=== PATIENT | female | born 1950 | race Caucasian/White ===

== ENCOUNTER 2021-05-03 14:49 | Inpatient (IN) | payer MEDICAID, MEDICARE ==
[~2021-05-03] VITALS: Ht 160 cm; Wt 140.6 kg
[2021-05-03] MEDS ORDERED: RISP0.5T5 PO (15:21)
[2021-05-03 16:04] LABS: HEMATOCRIT 25.4 % (31.2-41.9); MEAN CORPUSCULAR HEMOGLOBIN 22.3 uug (24.7-32.8); MEAN CORPUSCULAR VOLUME 73.1 fL (75.5-95.3); PLATELET COUNT (AUTO) 100 K/uL (179-408)
[2021-05-03 16:19] LABS: CARBON DIOXIDE 28 mmol/L (21-32); CHLORIDE 108 mmol/L (98-107); CREATININE 0.9 mg/dL (0.6-1.3); GLUCOSE 144 mg/dL (74-106); POTASSIUM 4.6 mmol/L (3.5-5.1); UREA NITROGEN, BLOOD 22 mg/dL (7-18)
[2021-05-03 16:24] LABS: ALANINE AMINOTRANSFERASE 66 U/L (14-59); ALKALINE PHOSPHATASE 102 U/L (50-136); ASPARTATE AMINOTRANSFERASE 62 U/L (15-37); BILIRUBIN,DIRECT 0.2 mg/dL (0.0-0.2); BILIRUBIN,TOTAL 0.5 mg/dL (0.2-1.0); TOTAL PROTEIN, SERUM 7.2 g/dL (6.4-8.2)
[2021-05-03] MEDS ORDERED: PIPERACILLIN SODIUM/TAZOBACTAM 3.375 G in IV DEXTROSE 5% 50 ML IV ONE (16:45)
[2021-05-03] MEDS ORDERED: PANTOPRAZOLE SODIUM 40 MG VIAL IV ONE (16:45)
[2021-05-03] MEDS ORDERED: PANTOPRAZOLE SODIUM 40 MG VIAL ONE (17:07)
[2021-05-03] MEDS ORDERED: PIPERACILLIN SODIUM/TAZO 3.375 GM VIAL ONE (17:08)
[2021-05-03] MEDS ORDERED: PIPERACILLIN/TAZOBACTAM/D5W 50 ML IV ONE (17:08)
[2021-05-03 17:18] LABS: LYMPHOCYTES % (MANUAL) 7 % (20-40); MONOCYTES % (MANUAL) 5 % (2-10); NEUTROPHILS % (MANUAL) 88 % (42-75)
[2021-05-03] MEDS ORDERED: MAGNESIUM HYDROXIDE 30 ML LIQUID UDC PO PRN (18:00)
[2021-05-03] MEDS ORDERED: Z GUARD REMEDY PASTE 57 GM TUBE TOP PRN (18:00)
[2021-05-03 19:00] VITALS: BP 179/85
[2021-05-03 20:00] VITALS: BP 166/77
[2021-05-03 21:00] VITALS: BP 159/80
[2021-05-03] MEDS: Z GUARD REMEDY PASTE 57 GM TUBE TOP SCH (21:04)
[2021-05-03 22:00] VITALS: BP 160/73
[2021-05-03] MEDS ORDERED: PIPERACILLIN SODIUM/TAZOBACTAM 4.5 G in IV DEXTROSE 5% 50 ML IV SCH (22:00)
[2021-05-03 23:00] VITALS: BP 120/63
[2021-05-04] VITALS (18 sets, daily range): BP systolic 91–169; BP diastolic 17–117
[2021-05-04] MEDS: PIPERACILLIN SODIUM/TAZOBACTAM 3.375 G in IV DEXTROSE 5% 100 ML IV SCH ×3 (02:08→20:16)
[2021-05-04] MEDS ORDERED: DEXTROSE 5% IV ONE (02:15)
[2021-05-04] MEDS ORDERED: BUMETANIDE IV ONE (02:15)
[2021-05-04] MEDS ORDERED: BUMETANIDE 1 MG/4 ML VIAL ONE ×3 (02:40→04:13)
[2021-05-04] MEDS ORDERED: BUMETANIDE INJ 3 MG in IV DEXTROSE 5% 48 ML IV ONE (03:45)
[2021-05-04 05:10] LABS: HEMATOCRIT 23.5 % (31.2-41.9); MEAN CORPUSCULAR HEMOGLOBIN 22.5 uug (24.7-32.8); PLATELET COUNT (AUTO) 113 K/uL (179-408)
[2021-05-04 05:12] LABS: MEAN CORPUSCULAR VOLUME 72.3 fL (75.5-95.3)
[2021-05-04 05:31] LABS: BILIRUBIN,TOTAL 0.6 mg/dL (0.2-1.0); CREATININE 1.2 mg/dL (0.6-1.3); POTASSIUM 4.4 mmol/L (3.5-5.1); TOTAL PROTEIN, SERUM 6.9 g/dL (6.4-8.2)
[2021-05-04] MEDS ORDERED: KETAMINE HCL 500 MG/10 ML INJ IV ONE (05:45)
[2021-05-04 06:23] LABS: *BILIRUBIN,URIN NEGATIVE (NEGATIVE); *BLOOD, URINE 3+ (NEGATIVE); *COLOR,URINE YELLOW (YELLOW); *KETONES,URINE NEGATIVE (NEGATIVE); *UROBILINOGEN,URINE 0.2 E.U./dl (NORMAL); LEUKOCYTE ESTERASE ,URINE 1+ (NEGATIVE); NITRITE, URINE NEGATIVE (NEGATIVE); PH,URINE 5.5 (5.0-8.0); UGLUCOSE NEGATIVE (NEGATIVE)
[2021-05-04] MEDS: FUROSEMIDE 40 MG/4 ML VIAL IV SCH ×3 (08:33→23:28)
[2021-05-04] MEDS: Z GUARD REMEDY PASTE 57 GM TUBE TOP SCH ×2 (08:33→20:17)
[2021-05-04] MEDS ORDERED: ALPRAZOLAM 0.25 MG TABLET PO ONE (11:30)
[2021-05-04 14:33] LABS: *CLARITY,URINE SLIGHTLY CLOUDY (CLEAR); RBC,URINE 20-50 /HPF (0-3)
[2021-05-04 14:34] LABS: BACTERIA,URINE FEW /HPF (NONE SEEN)
[2021-05-04 14:35] LABS: SQUAMOUS EPITHELIAL CELL,UR MODERATE /HPF (NONE SEEN)
[2021-05-05] VITALS (9 sets, daily range): BP systolic 102–147; BP diastolic 39–86
[2021-05-05] MEDS: PIPERACILLIN SODIUM/TAZOBACTAM 3.375 G in IV DEXTROSE 5% 100 ML IV SCH ×3 (01:43→16:15)
[2021-05-05 06:37] LABS: HEMATOCRIT 21.8 % (31.2-41.9); MEAN CORPUSCULAR HEMOGLOBIN 22.5 uug (24.7-32.8); MEAN CORPUSCULAR VOLUME 72.7 fL (75.5-95.3); PLATELET COUNT (AUTO) 86 K/uL (179-408)
[2021-05-05 06:59] LABS: CARBON DIOXIDE 30 mmol/L (21-32); CHLORIDE 109 mmol/L (98-107); CREATININE 1.5 mg/dL (0.6-1.3); GLUCOSE 85 mg/dL (74-106); MAGNESIUM 2.1 mg/dL (1.8-2.4); PHOSPHOROUS 4.5 mg/dL (2.5-4.9); POTASSIUM 4.4 mmol/L (3.5-5.1); UREA NITROGEN, BLOOD 24 mg/dL (7-18)
[2021-05-05] MEDS: Z GUARD REMEDY PASTE 57 GM TUBE TOP SCH ×2 (08:36→20:48)
[2021-05-05] MEDS: FUROSEMIDE 40 MG/4 ML VIAL IV SCH (08:44)
[2021-05-05] MEDS ORDERED: ALBUTEROL SULFATE 2.5 MG/ 0.5 ML NEBU NEB PRN (11:30)
[2021-05-05] MEDS: IV D5/ 0.9% NACL 1,000 ML IV PRN (14:51)
[2021-05-05] MEDS: ALBUTEROL SULFATE 2.5 MG/3 ML NEBU NEB PRN (22:08)
[2021-05-06] VITALS (13 sets, daily range): BP systolic 90–166; BP diastolic 39–132
[2021-05-06] MEDS: PIPERACILLIN SODIUM/TAZOBACTAM 3.375 G in IV DEXTROSE 5% 100 ML IV SCH ×3 (01:43→17:23)
[2021-05-06] MEDS: ALBUTEROL SULFATE 2.5 MG/3 ML NEBU NEB PRN ×3 (03:02→20:51)
[2021-05-06 06:36] LABS: HEMATOCRIT 26.6 % (31.2-41.9); MEAN CORPUSCULAR HEMOGLOBIN 23.7 uug (24.7-32.8); MEAN CORPUSCULAR VOLUME 75.6 fL (75.5-95.3); PLATELET COUNT (AUTO) 92 K/uL (179-408)
[2021-05-06 06:56] LABS: ALANINE AMINOTRANSFERASE 61 U/L (14-59); ALKALINE PHOSPHATASE 87 U/L (50-136); ASPARTATE AMINOTRANSFERASE 52 U/L (15-37); BILIRUBIN,DIRECT 0.3 mg/dL (0.0-0.2); BILIRUBIN,TOTAL 0.7 mg/dL (0.2-1.0); CARBON DIOXIDE 28 mmol/L (21-32); CHLORIDE 109 mmol/L (98-107); CREATININE 1.7 mg/dL (0.6-1.3); GLUCOSE 79 mg/dL (74-106); MAGNESIUM 2.1 mg/dL (1.8-2.4); POTASSIUM 4.2 mmol/L (3.5-5.1); TOTAL PROTEIN, SERUM 6.7 g/dL (6.4-8.2); UREA NITROGEN, BLOOD 27 mg/dL (7-18)
[2021-05-06] MEDS: Z GUARD REMEDY PASTE 57 GM TUBE TOP SCH ×2 (09:01→21:14)
[2021-05-06] MEDS ORDERED: IV NORMAL SALINE 250 ML IV ONE (11:45)
[2021-05-06 21:34] LABS: ABG BASE EXCESS 0.7 mmol/L; ABG HCO3 26.3 mmol/L; ABG PH 7.365 (7.350-7.450); ABG PO2 77.7 mmHg (75.0-100.0); ABG SITE RIGHT RADIAL; ABG TOTAL HEMOGLOBIN 8.2 G/dL (12.0-16.0); COHb 0.5 % (0.5-1.5); MetHb 0.4 % (0.0-1.5); O2Hb 93.7 % (94.0-97.0); VENT MODE Nasal Cannula
[2021-05-06] MEDS ORDERED: MEROPENEM 0.5 G in IV NORMAL SALINE 50 ML IV SCH (22:00)
[2021-05-06] MEDS ORDERED: MORPHINE SULFATE 2 MG/1 ML DISP.SYRIN IV PRN (22:15)
[2021-05-06] MEDS ORDERED: VANCOMYCIN IV 2,000 MG in IV DEXTROSE 5% 500 ML IV ONE (22:30)
[2021-05-06] MEDS ORDERED: MEROPENEM 500 MG VIAL IV ONE (22:41)
[2021-05-06] MEDS: methylPREDNISolone SOD SUCC 125 MG/2 ML VIAL IV SCH (23:01)
[2021-05-06] MEDS: MEROPENEM 0.5 G in IV NORMAL SALINE 50 ML IV SCH (23:02)
[2021-05-06] MEDS ORDERED: VANCOMYCIN 1000 MG VIAL ONE (23:08)
[2021-05-07] VITALS (26 sets, daily range): BP systolic 49–208; BP diastolic 26–185
[2021-05-07] MEDS ORDERED: FUROSEMIDE 20 MG/2 ML VIAL IV ONE
[2021-05-07] MEDS: methylPREDNISolone SOD SUCC 125 MG/2 ML VIAL IV SCH ×5 (00:26→23:11)
[2021-05-07 04:58] LABS: HEMATOCRIT 26.7 % (31.2-41.9); MEAN CORPUSCULAR HEMOGLOBIN 23.5 uug (24.7-32.8); MEAN CORPUSCULAR VOLUME 74.9 fL (75.5-95.3); PLATELET COUNT (AUTO) 81 K/uL (179-408)
[2021-05-07 05:11] LABS: NEUTROPHILS % (MANUAL) 0 % (42-75)
[2021-05-07 05:18] LABS: CARBON DIOXIDE 31 mmol/L (21-32); CHLORIDE 107 mmol/L (98-107); CREATININE 2.4 mg/dL (0.6-1.3); GLUCOSE 110 mg/dL (74-106); PHOSPHOROUS 5.3 mg/dL (2.5-4.9); POTASSIUM 4.6 mmol/L (3.5-5.1); UREA NITROGEN, BLOOD 31 mg/dL (7-18)
[2021-05-07] MEDS: MEROPENEM 0.5 G in IV NORMAL SALINE 50 ML IV SCH (05:32)
[2021-05-07] MEDS: IV D5/ 0.9% NACL 1,000 ML IV PRN ×2 (05:37→19:56)
[2021-05-07 08:13] LABS: ABG BASE EXCESS -0.2 mmol/L; ABG HCO3 26.7 mmol/L; ABG PCO2 55.9 mmHg (35.0-45.0); ABG PH 7.297 (7.350-7.450); ABG PO2 83.1 mmHg (75.0-100.0); ABG SITE RIGHT RADIAL; ABG TOTAL HEMOGLOBIN 8.7 G/dL (12.0-16.0); COHb 1.1 % (0.5-1.5); MetHb 0.3 % (0.0-1.5); O2Hb 93.9 % (94.0-97.0); VENT MODE Nasal Cannula
[2021-05-07] MEDS: Z GUARD REMEDY PASTE 57 GM TUBE TOP SCH ×2 (09:00→20:23)
[2021-05-07] MEDS ORDERED: NOREPINEPHRINE BITARTRATE 8 MG in IV NORMAL SALINE 242 ML IV PRN (09:15)
[2021-05-07] MEDS: ALBUTEROL SULFATE 2.5 MG/3 ML NEBU NEB PRN (09:29)
[2021-05-07] MEDS: IPRATROPIUM BROMIDE 0.5 MG/2.5 ML NEBU NEB SCH ×3 (12:27→19:51)
[2021-05-07] MEDS: ALBUTEROL SULFATE 2.5 MG/3 ML NEBU NEB SCH ×3 (12:27→19:51)
[2021-05-07] MEDS: ALBUMIN HUMAN 25% 100 ML IV SCH ×2 (14:10→20:21)
[2021-05-07] MEDS: MEROPENEM 500 MG in IV NORMAL SALINE 50 ML IV SCH (17:06)
[2021-05-07] MEDS: hydrALAZINE HCL 20 MG/1 ML VIAL IV PRN (18:25)
[2021-05-07] MEDS ORDERED: VANCOMYCIN IV 2,000 MG in IV DEXTROSE 5% 500 ML IV ONE (22:00)
[2021-05-08] VITALS (27 sets, daily range): BP systolic 81–178; BP diastolic 38–94
[2021-05-08] MEDS: MEROPENEM 500 MG in IV NORMAL SALINE 50 ML IV SCH ×2 (05:06→18:46)
[2021-05-08] MEDS: methylPREDNISolone SOD SUCC 125 MG/2 ML VIAL IV SCH ×4 (05:06→23:42)
[2021-05-08 05:55] LABS: HEMATOCRIT 22.9 % (31.2-41.9); MEAN CORPUSCULAR VOLUME 75.7 fL (75.5-95.3); PLATELET COUNT (AUTO) 64 K/uL (179-408)
[2021-05-08 05:58] LABS: CARBON DIOXIDE 27 mmol/L (21-32); CHLORIDE 107 mmol/L (98-107); CREATININE 2.4 mg/dL (0.6-1.3); GLUCOSE 169 mg/dL (74-106); MAGNESIUM 2.1 mg/dL (1.8-2.4); PHOSPHOROUS 4.3 mg/dL (2.5-4.9); POTASSIUM 4.1 mmol/L (3.5-5.1); UREA NITROGEN, BLOOD 44 mg/dL (7-18)
[2021-05-08 06:03] LABS: ABG BASE EXCESS -0.1 mmol/L; ABG HCO3 25.1 mmol/L; ABG PCO2 43.8 mmHg (35.0-45.0); ABG PH 7.376 (7.350-7.450); ABG PO2 113.6 mmHg (75.0-100.0); ABG SITE RIGHT RADIAL; ABG TOTAL HEMOGLOBIN 7.7 G/dL (12.0-16.0); COHb 0.3 % (0.5-1.5); MetHb 0.2 % (0.0-1.5); O2Hb 97.5 % (94.0-97.0); VENT MODE Nasal Cannula
[2021-05-08] MEDS: ALBUTEROL SULFATE 2.5 MG/3 ML NEBU NEB SCH ×4 (07:30→20:16)
[2021-05-08] MEDS: IPRATROPIUM BROMIDE 0.5 MG/2.5 ML NEBU NEB SCH ×4 (07:30→20:16)
[2021-05-08] MEDS: Z GUARD REMEDY PASTE 57 GM TUBE TOP SCH ×2 (08:27→21:01)
[2021-05-08] MEDS: IV D5/ 0.9% NACL 1,000 ML IV PRN (11:56)
[2021-05-08 21:12] LABS: *BLOOD, URINE 3+ (NEGATIVE); *COLOR,URINE YELLOW (YELLOW); *KETONES,URINE TRACE (NEGATIVE); LEUKOCYTE ESTERASE ,URINE 1+ (NEGATIVE); NITRITE, URINE NEGATIVE (NEGATIVE); PH,URINE 5.5 (5.0-8.0); UGLUCOSE NEGATIVE (NEGATIVE)
[2021-05-08 21:19] LABS: *BILIRUBIN,URIN 1+ (NEGATIVE)
[2021-05-08 21:21] LABS: *CLARITY,URINE CLOUDY (CLEAR); RBC,URINE TNTC /HPF (0-3)
[2021-05-08 21:22] LABS: BACTERIA,URINE FEW /HPF (NONE SEEN); SQUAMOUS EPITHELIAL CELL,UR MODERATE /HPF (NONE SEEN); URINE AMORPHOUS URATE MODERATE /HPF; YEAST,URINE MODERATE /HPF (NONE SEEN)
[2021-05-08 21:24] LABS: *CREATININE,URINE 209.8 mg/dL (30-125)
[2021-05-09] VITALS (17 sets, daily range): BP systolic 140–161; BP diastolic 59–81
[2021-05-09] MEDS: IV D5/ 0.9% NACL 1,000 ML IV PRN ×3 (00:33→23:30)
[2021-05-09] MEDS: methylPREDNISolone SOD SUCC 125 MG/2 ML VIAL IV SCH ×4 (05:45→23:28)
[2021-05-09] MEDS: MEROPENEM 500 MG in IV NORMAL SALINE 50 ML IV SCH ×2 (05:45→17:37)
[2021-05-09] MEDS ORDERED: FUROSEMIDE 40 MG/4 ML VIAL IV ONE (06:15)
[2021-05-09 07:54] LABS: ABG BASE EXCESS -0.5 mmol/L; ABG HCO3 24.4 mmol/L; ABG PCO2 41.6 mmHg (35.0-45.0); ABG PH 7.387 (7.350-7.450); ABG PO2 93.4 mmHg (75.0-100.0); ABG SITE LEFT RADIAL; ABG TOTAL HEMOGLOBIN 8.7 G/dL (12.0-16.0); COHb 0.3 % (0.5-1.5); MetHb 0.2 % (0.0-1.5); O2Hb 96.2 % (94.0-97.0)
[2021-05-09] MEDS: IPRATROPIUM BROMIDE 0.5 MG/2.5 ML NEBU NEB SCH ×4 (07:57→19:36)
[2021-05-09] MEDS: ALBUTEROL SULFATE 2.5 MG/3 ML NEBU NEB SCH ×4 (07:57→19:36)
[2021-05-09 08:05] LABS: HEMATOCRIT 24.9 % (31.2-41.9); MEAN CORPUSCULAR HEMOGLOBIN 24.2 uug (24.7-32.8); PLATELET COUNT (AUTO) 78 K/uL (179-408)
[2021-05-09 08:11] LABS: CARBON DIOXIDE 28 mmol/L (21-32); CHLORIDE 109 mmol/L (98-107); CREATININE 2.7 mg/dL (0.6-1.3); GLUCOSE 179 mg/dL (74-106); POTASSIUM 4.7 mmol/L (3.5-5.1); UREA NITROGEN, BLOOD 56 mg/dL (7-18)
[2021-05-09 08:17] LABS: MAGNESIUM 2.3 mg/dL (1.8-2.4); PHOSPHOROUS 4.5 mg/dL (2.5-4.9); VANCOMYCIN,RANDOM 26.9 ug/mL (18.0-26.0)
[2021-05-09] MEDS: Z GUARD REMEDY PASTE 57 GM TUBE TOP SCH ×2 (08:27→20:44)
[2021-05-09] MEDS: JEVITY 1.2 1000 ML LIQUID GT PRN (13:10)
[2021-05-09] MEDS ORDERED: DEXTROSE 50% 50 ML DISP.SYRIN IV PRN (14:15)
[2021-05-09] MEDS: BLOOD SUGAR DIAGNOSTIC 1 EACH STRIP VI SCH ×3 (14:37→23:28)
[2021-05-09] MEDS: INSULIN REGULAR, HUMAN 300 UNIT/3 ML VIAL SQ PRN ×3 (14:50→23:29)
[2021-05-10] VITALS (21 sets, daily range): BP systolic 132–162; BP diastolic 50–99
[2021-05-10 05:16] LABS: HEMATOCRIT 25.9 % (31.2-41.9); MEAN CORPUSCULAR HEMOGLOBIN 24.5 uug (24.7-32.8); MEAN CORPUSCULAR VOLUME 77.1 fL (75.5-95.3); PLATELET COUNT (AUTO) 81 K/uL (179-408)
[2021-05-10] MEDS: methylPREDNISolone SOD SUCC 125 MG/2 ML VIAL IV SCH ×2 (05:16→20:34)
[2021-05-10] MEDS: MEROPENEM 500 MG in IV NORMAL SALINE 50 ML IV SCH ×2 (05:18→17:16)
[2021-05-10 05:33] LABS: CARBON DIOXIDE 28 mmol/L (21-32); CHLORIDE 111 mmol/L (98-107); CREATININE 2.9 mg/dL (0.6-1.3); GLUCOSE 153 mg/dL (74-106); MAGNESIUM 2.2 mg/dL (1.8-2.4); POTASSIUM 4.6 mmol/L (3.5-5.1); UREA NITROGEN, BLOOD 65 mg/dL (7-18); VANCOMYCIN,RANDOM 23.1 ug/mL (18.0-26.0)
[2021-05-10] MEDS: INSULIN REGULAR, HUMAN 300 UNIT/3 ML VIAL SQ PRN ×4 (05:43→23:45)
[2021-05-10] MEDS: BLOOD SUGAR DIAGNOSTIC 1 EACH STRIP VI SCH ×4 (05:47→23:44)
[2021-05-10 05:49] LABS: LYMPHOCYTES % (MANUAL) 9 % (20-40); MONOCYTES % (MANUAL) 3 % (2-10); NEUTROPHILS % (MANUAL) 88 % (42-75)
[2021-05-10] MEDS: IV D5/ 0.9% NACL 1,000 ML IV PRN ×2 (07:12→16:46)
[2021-05-10] MEDS: IPRATROPIUM BROMIDE 0.5 MG/2.5 ML NEBU NEB SCH ×4 (07:43→19:58)
[2021-05-10] MEDS: ALBUTEROL SULFATE 2.5 MG/3 ML NEBU NEB SCH ×4 (07:44→19:58)
[2021-05-10] MEDS: Z GUARD REMEDY PASTE 57 GM TUBE TOP SCH ×2 (08:19→21:44)
[2021-05-10] MEDS: JEVITY 1.2 1000 ML LIQUID GT PRN (13:57)
[2021-05-11] VITALS (25 sets, daily range): BP systolic 123–176; BP diastolic 44–94
[2021-05-11] MEDS: IV D5/ 0.9% NACL 1,000 ML IV PRN (02:15)
[2021-05-11] MEDS: MEROPENEM 500 MG in IV NORMAL SALINE 50 ML IV SCH ×2 (05:16→17:26)
[2021-05-11 05:20] LABS: HEMATOCRIT 25.6 % (31.2-41.9); MEAN CORPUSCULAR HEMOGLOBIN 24.8 uug (24.7-32.8); MEAN CORPUSCULAR VOLUME 77.5 fL (75.5-95.3); PLATELET COUNT (AUTO) 80 K/uL (179-408)
[2021-05-11 05:29] LABS: ABG BASE EXCESS -2.6 mmol/L; ABG HCO3 22.8 mmol/L; ABG PCO2 42.1 mmHg (35.0-45.0); ABG PH 7.352 (7.350-7.450); ABG SITE LEFT RADIAL; ABG TOTAL HEMOGLOBIN 8.9 G/dL (12.0-16.0); COHb 0.3 % (0.5-1.5); MetHb 0.4 % (0.0-1.5); O2Hb 95.2 % (94.0-97.0); VENT MODE Nasal Cannula
[2021-05-11 05:31] LABS: CARBON DIOXIDE 28 mmol/L (21-32); CHLORIDE 114 mmol/L (98-107); CREATININE 2.6 mg/dL (0.6-1.3); GLUCOSE 175 mg/dL (74-106); MAGNESIUM 2.4 mg/dL (1.8-2.4); PHOSPHOROUS 5.6 mg/dL (2.5-4.9); POTASSIUM 4.9 mmol/L (3.5-5.1); UREA NITROGEN, BLOOD 72 mg/dL (7-18); VANCOMYCIN,RANDOM 17.1 ug/mL (18.0-26.0)
[2021-05-11] MEDS: BLOOD SUGAR DIAGNOSTIC 1 EACH STRIP VI SCH ×3 (06:06→17:31)
[2021-05-11] MEDS: INSULIN REGULAR, HUMAN 300 UNIT/3 ML VIAL SQ PRN ×3 (06:07→17:34)
[2021-05-11] MEDS: ALBUTEROL SULFATE 2.5 MG/3 ML NEBU NEB SCH ×4 (07:32→20:40)
[2021-05-11] MEDS: IPRATROPIUM BROMIDE 0.5 MG/2.5 ML NEBU NEB SCH (07:32)
[2021-05-11] MEDS ORDERED: VANCOMYCIN IV 1,500 MG in IV DEXTROSE 5% 500 ML IV SCH (08:00)
[2021-05-11] MEDS ORDERED: VANCOMYCIN IV 2,000 MG in IV DEXTROSE 5% 500 ML IV ONE (08:00)
[2021-05-11] MEDS: methylPREDNISolone SOD SUCC 125 MG/2 ML VIAL IV SCH (08:11)
[2021-05-11] MEDS: Z GUARD REMEDY PASTE 57 GM TUBE TOP SCH ×2 (08:12→21:49)
[2021-05-11] MEDS: ALBUTEROL SULFATE 2.5 MG/3 ML NEBU NEB PRN (10:58)
[2021-05-11] MEDS: IPRATROPIUM BROMIDE 0.5 MG/2.5 ML NEBU NEB PRN ×2 (10:58→20:42)
[2021-05-11] MEDS ORDERED: BISACODYL 10 MG SUPP.RECT RC ONE (11:00)
[2021-05-11] MEDS: PANTOPRAZOLE SODIUM 40 MG VIAL IV SCH (11:11)
[2021-05-11 11:13] LABS: IRON, SERUM 22 ug/dL (50-175)
[2021-05-11] MEDS ORDERED: BISACODYL 5 MG TABLET.DR PO ONE (11:15)
[2021-05-11] MEDS ORDERED: MIRALAX 17 GM POWD.PACK NG PRN (11:30)
[2021-05-11] MEDS ORDERED: MIRALAX 17 GM POWD.PACK PO PRN (11:30)
[2021-05-11] MEDS ORDERED: MIRALAX 17 GM POWD.PACK NG ONE (11:45)
[2021-05-11] MEDS: FLUCONAZOLE 200 MG/NS 100ML IV 100 MG in PREMIXED 1 EACH IV SCH (13:26)
[2021-05-11] MEDS ORDERED: FUROSEMIDE 40 MG/4 ML VIAL IV ONE (15:30)
[2021-05-11] MEDS: hydrALAZINE HCL 20 MG/1 ML VIAL IV PRN (17:53)
[2021-05-11] MEDS: JEVITY 1.2 1000 ML LIQUID GT PRN (18:05)
[2021-05-11] MEDS: methylPREDNISolone SOD SUCC 40 MG/ML VIAL IV SCH (21:48)
[2021-05-11] MEDS: DOXYCYCLINE HYCLATE 100 MG TABLET PO SCH (21:49)
[2021-05-12] VITALS (12 sets, daily range): BP systolic 97–174; BP diastolic 46–116
[2021-05-12] MEDS: INSULIN REGULAR, HUMAN 300 UNIT/3 ML VIAL SQ PRN ×5 (00:42→23:23)
[2021-05-12] MEDS: BLOOD SUGAR DIAGNOSTIC 1 EACH STRIP VI SCH ×5 (00:44→23:22)
[2021-05-12 05:23] LABS: HEMATOCRIT 26.3 % (31.2-41.9); MEAN CORPUSCULAR HEMOGLOBIN 24.3 uug (24.7-32.8); MEAN CORPUSCULAR VOLUME 77.1 fL (75.5-95.3); PLATELET COUNT (AUTO) 67 K/uL (179-408)
[2021-05-12 05:24] LABS: ALANINE AMINOTRANSFERASE 56 U/L (14-59); ALKALINE PHOSPHATASE 75 U/L (50-136); ASPARTATE AMINOTRANSFERASE 35 U/L (15-37); BILIRUBIN,DIRECT 0.1 mg/dL (0.0-0.2); BILIRUBIN,TOTAL 0.6 mg/dL (0.2-1.0); CARBON DIOXIDE 27 mmol/L (21-32); CHLORIDE 113 mmol/L (98-107); CREATININE 2.5 mg/dL (0.6-1.3); GLUCOSE 184 mg/dL (74-106); MAGNESIUM 2.4 mg/dL (1.8-2.4); PHOSPHOROUS 5.5 mg/dL (2.5-4.9); POTASSIUM 5.2 mmol/L (3.5-5.1); TOTAL PROTEIN, SERUM 6.2 g/dL (6.4-8.2)
[2021-05-12 05:48] LABS: UREA NITROGEN, BLOOD 81 mg/dL (7-18)
[2021-05-12] MEDS: MEROPENEM 500 MG in IV NORMAL SALINE 50 ML IV SCH ×2 (05:54→17:04)
[2021-05-12] MEDS ORDERED: BISACODYL 10 MG SUPP.RECT RC PRN (06:00)
[2021-05-12] MEDS: IPRATROPIUM BROMIDE 0.5 MG/2.5 ML NEBU NEB PRN (07:51)
[2021-05-12] MEDS: ALBUTEROL SULFATE 2.5 MG/3 ML NEBU NEB SCH ×4 (07:51→19:35)
[2021-05-12] MEDS: methylPREDNISolone SOD SUCC 40 MG/ML VIAL IV SCH ×2 (08:06→20:52)
[2021-05-12] MEDS: PANTOPRAZOLE SODIUM 40 MG VIAL IV SCH (08:06)
[2021-05-12] MEDS: DOXYCYCLINE HYCLATE 100 MG TABLET PO SCH ×2 (08:07→20:52)
[2021-05-12] MEDS: Z GUARD REMEDY PASTE 57 GM TUBE TOP SCH ×2 (08:07→20:51)
[2021-05-12] MEDS: IPRATROPIUM BROMIDE 0.5 MG/2.5 ML NEBU NEB SCH ×3 (11:27→19:35)
[2021-05-12] MEDS: FLUCONAZOLE 200 MG/NS 100ML IV 100 MG in PREMIXED 1 EACH IV SCH (11:37)
[2021-05-12] MEDS: hydrALAZINE HCL 20 MG/1 ML VIAL IV PRN (12:48)
[2021-05-12] MEDS: SOD FERRIC GLUC COMPLX/SUCROSE 125 MG in IV NORMAL SALINE 100 ML IV SCH (13:44)
[2021-05-12] MEDS ORDERED: FUROSEMIDE 40 MG/4 ML VIAL IV ONE (16:45)
[2021-05-13] VITALS (9 sets, daily range): BP systolic 114–164; BP diastolic 55–67
[2021-05-13] MEDS ORDERED: IV NORMAL SALINE 250 ML IV PRN (04:45)
[2021-05-13 05:06] LABS: HEMATOCRIT 26.3 % (31.2-41.9); MEAN CORPUSCULAR HEMOGLOBIN 23.9 uug (24.7-32.8); MEAN CORPUSCULAR VOLUME 76.9 fL (75.5-95.3); PLATELET COUNT (AUTO) 60 K/uL (179-408)
[2021-05-13] MEDS: MEROPENEM 500 MG in IV NORMAL SALINE 50 ML IV SCH (05:07)
[2021-05-13] MEDS: INSULIN REGULAR, HUMAN 300 UNIT/3 ML VIAL SQ PRN ×2 (05:09→13:08)
[2021-05-13] MEDS: BLOOD SUGAR DIAGNOSTIC 1 EACH STRIP VI SCH ×3 (05:09→17:44)
[2021-05-13 05:23] LABS: CARBON DIOXIDE 29 mmol/L (21-32); CHLORIDE 113 mmol/L (98-107); CREATININE 2.7 mg/dL (0.6-1.3); GLUCOSE 146 mg/dL (74-106); MAGNESIUM 2.4 mg/dL (1.8-2.4); POTASSIUM 5.6 mmol/L (3.5-5.1)
[2021-05-13 05:35] LABS: UREA NITROGEN, BLOOD 93 mg/dL (7-18)
[2021-05-13] MEDS ORDERED: PANTOPRAZOLE ORAL SUSPENSION 40 MG SUSPDR.PKT GT SCH (06:00)
[2021-05-13] MEDS ORDERED: IV D5W 1000ML 1,000 ML IV ONE (06:30)
[2021-05-13] MEDS ORDERED: SODIUM POLYSTYRENE SULFONATE 15 G/60 ML LIQUID UDC PO ONE (06:30)
[2021-05-13] MEDS: PANTOPRAZOLE SODIUM 40 MG TABLET.DR PO SCH (06:38)
[2021-05-13] MEDS: IPRATROPIUM BROMIDE 0.5 MG/2.5 ML NEBU NEB SCH ×4 (08:19→19:14)
[2021-05-13] MEDS: ALBUTEROL SULFATE 2.5 MG/3 ML NEBU NEB SCH ×4 (08:19→19:14)
[2021-05-13] MEDS: DOXYCYCLINE HYCLATE 100 MG TABLET PO SCH ×2 (08:32→20:29)
[2021-05-13] MEDS: methylPREDNISolone SOD SUCC 40 MG/ML VIAL IV SCH ×2 (08:32→20:23)
[2021-05-13] MEDS: Z GUARD REMEDY PASTE 57 GM TUBE TOP SCH ×2 (08:33→20:30)
[2021-05-13] MEDS ORDERED: FLUCONAZOLE 200 MG/NS 100ML IV 100 MG in PREMIXED 1 EACH IV SCH (09:30)
[2021-05-13] MEDS: FLUCONAZOLE 100 MG TABLET PO SCH (12:54)
[2021-05-13] MEDS: SOD FERRIC GLUC COMPLX/SUCROSE 125 MG in IV NORMAL SALINE 100 ML IV SCH (15:50)
[2021-05-14] VITALS: BP 148/58
[2021-05-14] MEDS: BLOOD SUGAR DIAGNOSTIC 1 EACH STRIP VI SCH ×5 (00:02→23:33)
[2021-05-14 04:00] VITALS: BP 139/54
[2021-05-14 05:05] LABS: HEMATOCRIT 28.6 % (31.2-41.9); MEAN CORPUSCULAR HEMOGLOBIN 23.6 uug (24.7-32.8); MEAN CORPUSCULAR VOLUME 77.3 fL (75.5-95.3); PLATELET COUNT (AUTO) 70 K/uL (179-408)
[2021-05-14 05:16] LABS: ALANINE AMINOTRANSFERASE 55 U/L (14-59); ALKALINE PHOSPHATASE 73 U/L (50-136); ASPARTATE AMINOTRANSFERASE 19 U/L (15-37); BILIRUBIN,TOTAL 0.6 mg/dL (0.2-1.0); CARBON DIOXIDE 31 mmol/L (21-32); CHLORIDE 113 mmol/L (98-107); CREATININE 2.6 mg/dL (0.6-1.3); GLUCOSE 153 mg/dL (74-106); MAGNESIUM 2.4 mg/dL (1.8-2.4); PHOSPHOROUS 5.9 mg/dL (2.5-4.9); POTASSIUM 5.6 mmol/L (3.5-5.1); TOTAL PROTEIN, SERUM 5.5 g/dL (6.4-8.2)
[2021-05-14 05:25] LABS: UREA NITROGEN, BLOOD 99 mg/dL (7-18)
[2021-05-14] MEDS: INSULIN REGULAR, HUMAN 300 UNIT/3 ML VIAL SQ PRN (05:37)
[2021-05-14] MEDS: PANTOPRAZOLE SODIUM 40 MG TABLET.DR PO SCH (06:04)
[2021-05-14 06:28] LABS: LYMPHOCYTES % (MANUAL) 1 % (20-40); METAMYELOCYTES % 1 % (0-1); MONOCYTES % (MANUAL) 1 % (2-10); NEUTROPHILS % (MANUAL) 97 % (42-75)
[2021-05-14] MEDS: IPRATROPIUM BROMIDE 0.5 MG/2.5 ML NEBU NEB SCH ×4 (07:24→20:15)
[2021-05-14] MEDS: ALBUTEROL SULFATE 2.5 MG/3 ML NEBU NEB SCH ×4 (07:24→20:15)
[2021-05-14 08:00] VITALS: BP 155/69
[2021-05-14] MEDS: methylPREDNISolone SOD SUCC 40 MG/ML VIAL IV SCH ×2 (08:41→20:56)
[2021-05-14] MEDS: DOXYCYCLINE HYCLATE 100 MG TABLET PO SCH ×3 (08:41→21:00)
[2021-05-14] MEDS: FLUCONAZOLE 100 MG TABLET PO SCH (08:41)
[2021-05-14] MEDS: Z GUARD REMEDY PASTE 57 GM TUBE TOP SCH ×2 (08:43→20:50)
[2021-05-14] MEDS ORDERED: SODIUM POLYSTYRENE SULFONATE 15 G/60 ML LIQUID UDC NG ONE (10:15)
[2021-05-14 12:00] VITALS: BP 138/80
[2021-05-14 16:00] VITALS: BP 135/81
[2021-05-14 20:00] VITALS: BP 141/51
[2021-05-15] VITALS (10 sets, daily range): BP systolic 102–152; BP diastolic 42–75
[2021-05-15] MEDS: PANTOPRAZOLE SODIUM 40 MG TABLET.DR PO SCH (05:59)
[2021-05-15] MEDS: BLOOD SUGAR DIAGNOSTIC 1 EACH STRIP VI SCH ×2 (06:13→11:49)
[2021-05-15 06:16] LABS: MEAN CORPUSCULAR HEMOGLOBIN 23.8 uug (24.7-32.8); MEAN CORPUSCULAR VOLUME 77.6 fL (75.5-95.3); PLATELET COUNT (AUTO) 74 K/uL (179-408)
[2021-05-15 06:28] LABS: CARBON DIOXIDE 31 mmol/L (21-32); CHLORIDE 113 mmol/L (98-107); CREATININE 2.7 mg/dL (0.6-1.3); GLUCOSE 145 mg/dL (74-106); MAGNESIUM 2.5 mg/dL (1.8-2.4); PHOSPHOROUS 6.2 mg/dL (2.5-4.9); POTASSIUM 5.4 mmol/L (3.5-5.1)
[2021-05-15 06:36] LABS: ABG BASE EXCESS 6.3 mmol/L; ABG HCO3 31.1 mmol/L; ABG PCO2 46.7 mmHg (35.0-45.0); ABG PH 7.442 (7.350-7.450); ABG PO2 74.3 mmHg (75.0-100.0); ABG SITE LEFT RADIAL; ABG TOTAL HEMOGLOBIN 9.3 G/dL (12.0-16.0); COHb 0.2 % (0.5-1.5); MetHb 0.2 % (0.0-1.5); O2Hb 94.1 % (94.0-97.0); VENT MODE Nasal Cannula
[2021-05-15 06:37] LABS: UREA NITROGEN, BLOOD 101 mg/dL (7-18)
[2021-05-15] MEDS: IPRATROPIUM BROMIDE 0.5 MG/2.5 ML NEBU NEB SCH ×4 (07:32→20:35)
[2021-05-15] MEDS: ALBUTEROL SULFATE 2.5 MG/3 ML NEBU NEB SCH ×4 (07:32→20:39)
[2021-05-15] MEDS: FLUCONAZOLE 100 MG TABLET PO SCH (09:25)
[2021-05-15] MEDS: methylPREDNISolone SOD SUCC 40 MG/ML VIAL IV SCH ×2 (09:25→20:59)
[2021-05-15] MEDS: Z GUARD REMEDY PASTE 57 GM TUBE TOP SCH ×2 (09:26→21:00)
[2021-05-15] MEDS: DOXYCYCLINE HYCLATE 100 MG TABLET PO SCH (09:26)
[2021-05-15] MEDS ORDERED: SODIUM POLYSTYRENE SULFONATE 15 G/60 ML LIQUID UDC PO ONE (11:00)
[2021-05-15 16:17] LABS: *BILIRUBIN,URIN NEGATIVE (NEGATIVE); *BLOOD, URINE 2+ (NEGATIVE); *CLARITY,URINE CLEAR (CLEAR); *COLOR,URINE YELLOW (YELLOW); *KETONES,URINE NEGATIVE (NEGATIVE); *UROBILINOGEN,URINE 0.2 E.U./dl (NORMAL); LEUKOCYTE ESTERASE ,URINE TRACE (NEGATIVE); NITRITE, URINE NEGATIVE (NEGATIVE); PH,URINE 5.5 (5.0-8.0); UGLUCOSE NEGATIVE (NEGATIVE)
[2021-05-15 18:09] LABS: FERRITIN 315 ng/mL (8-252)
[2021-05-15 20:01] LABS: SQUAMOUS EPITHELIAL CELL,UR FEW /HPF (NONE SEEN); YEAST,URINE FEW /HPF (NONE SEEN)
[2021-05-15 20:19] LABS: BACTERIA,URINE NONE SEEN /HPF (NONE SEEN)
[2021-05-15] MEDS ORDERED: AMIODARONE HCL IV 150 MG in IV DEXTROSE 5% 100 ML IV ONE (23:00)
[2021-05-15] MEDS ORDERED: AMIODARONE HCL 150 MG/3 ML VIAL IV ONE (23:08)
[2021-05-15] MEDS: AMIODARONE HCL IV 450 MG in IV DEXTROSE 5% 250 ML IV PRN (23:20)
[2021-05-16] VITALS (31 sets, daily range): BP systolic 95–134; BP diastolic 41–75
[2021-05-16] MEDS ORDERED: AMIODARONE HCL 150 MG/3 ML VIAL IV ONE (05:21)
[2021-05-16] MEDS: AMIODARONE HCL IV 450 MG in IV DEXTROSE 5% 250 ML IV PRN (05:26)
[2021-05-16 06:18] LABS: HEMATOCRIT 26.6 % (31.2-41.9); MEAN CORPUSCULAR HEMOGLOBIN 23.7 uug (24.7-32.8); MEAN CORPUSCULAR VOLUME 77.1 fL (75.5-95.3); PLATELET COUNT (AUTO) 111 K/uL (179-408)
[2021-05-16] MEDS: PANTOPRAZOLE SODIUM 40 MG TABLET.DR PO SCH (06:20)
[2021-05-16 06:37] LABS: CARBON DIOXIDE 30 mmol/L (21-32); CHLORIDE 113 mmol/L (98-107); CREATININE 2.8 mg/dL (0.6-1.3); GLUCOSE 197 mg/dL (74-106); MAGNESIUM 2.4 mg/dL (1.8-2.4); POTASSIUM 5.5 mmol/L (3.5-5.1)
[2021-05-16 06:44] LABS: UREA NITROGEN, BLOOD 97 mg/dL (7-18)
[2021-05-16] MEDS: ALBUTEROL SULFATE 2.5 MG/3 ML NEBU NEB SCH (07:47)
[2021-05-16] MEDS: IPRATROPIUM BROMIDE 0.5 MG/2.5 ML NEBU NEB SCH ×4 (07:47→21:01)
[2021-05-16] MEDS: Z GUARD REMEDY PASTE 57 GM TUBE TOP SCH ×2 (08:33→20:52)
[2021-05-16] MEDS: methylPREDNISolone SOD SUCC 40 MG/ML VIAL IV SCH ×2 (08:34→20:52)
[2021-05-16] MEDS: ONDANSETRON 4 MG/2 ML VIAL IV PRN (10:54)
[2021-05-16] MEDS: SOD FERRIC GLUC COMPLX/SUCROSE 125 MG in IV NORMAL SALINE 100 ML IV SCH (14:05)
[2021-05-16 16:45] LABS: *RHEUMATOID FACTOR SCREEN NEGATIVE (NEGATIVE)
[2021-05-17] VITALS (8 sets, daily range): BP systolic 109–141; BP diastolic 34–57
[2021-05-17 04:36] LABS: *OCCULT BLOOD STOOL POSITIVE (NEGATIVE)
[2021-05-17 06:15] LABS: ABG BASE EXCESS 2.2 mmol/L; ABG PCO2 42.9 mmHg (35.0-45.0); ABG PH 7.417 (7.350-7.450); ABG SITE LEFT RADIAL; ABG TOTAL HEMOGLOBIN 8.8 G/dL (12.0-16.0); COHb 0.1 % (0.5-1.5); MetHb 0.5 % (0.0-1.5); O2Hb 93.9 % (94.0-97.0); VENT MODE Nasal Cannula
[2021-05-17] MEDS: PANTOPRAZOLE SODIUM 40 MG TABLET.DR PO SCH (07:00)
[2021-05-17 07:44] LABS: HEMATOCRIT 26.4 % (31.2-41.9); MEAN CORPUSCULAR HEMOGLOBIN 24.1 uug (24.7-32.8); MEAN CORPUSCULAR VOLUME 77.1 fL (75.5-95.3); PLATELET COUNT (AUTO) 119 K/uL (179-408)
[2021-05-17 08:06] LABS: *IMMUNOGLOBULIN G, SERUM 1082 mg/dL (586-1602); IMMUNOGLOBULIN A, SERUM 159 mg/dL (64-422); IMMUNOGLOBULIN M, SERUM 33 mg/dL (26-217)
[2021-05-17 08:08] LABS: ALANINE AMINOTRANSFERASE 47 U/L (14-59); ALKALINE PHOSPHATASE 67 U/L (50-136); ASPARTATE AMINOTRANSFERASE 19 U/L (15-37); BILIRUBIN,DIRECT 0.2 mg/dL (0.0-0.2); BILIRUBIN,TOTAL 0.5 mg/dL (0.2-1.0); CARBON DIOXIDE 32 mmol/L (21-32); CHLORIDE 109 mmol/L (98-107); CREATININE 2.8 mg/dL (0.6-1.3); GLUCOSE 119 mg/dL (74-106); MAGNESIUM 2.8 mg/dL (1.8-2.4); PHOSPHOROUS 6.6 mg/dL (2.5-4.9); POTASSIUM 5.5 mmol/L (3.5-5.1); TOTAL PROTEIN, SERUM 5.1 g/dL (6.4-8.2)
[2021-05-17] MEDS: IPRATROPIUM BROMIDE 0.5 MG/2.5 ML NEBU NEB SCH ×4 (08:08→19:07)
[2021-05-17] MEDS: ALBUTEROL SULFATE 2.5 MG/3 ML NEBU NEB PRN ×4 (08:09→19:07)
[2021-05-17] MEDS ORDERED: SODIUM POLYSTYRENE SULFONATE 15 G/60 ML LIQUID UDC PO ONE (09:30)
[2021-05-17 10:06] LABS: *ANTI-SCLERODERMA-70 AB <0.2 AI (0.0-0.9); *SJOGREN'S ANTI-SS-A <0.2 AI (0.0-0.9); *SJOGREN'S ANTI-SS-B <0.2 AI (0.0-0.9); *SMITH ANTIBODIES <0.2 AI (0.0-0.9); ANTI-DNA(DS) AB, QN <1 IU/mL (0-9)
[2021-05-17] MEDS: methylPREDNISolone SOD SUCC 40 MG/ML VIAL IV SCH ×2 (10:10→21:15)
[2021-05-17] MEDS: Z GUARD REMEDY PASTE 57 GM TUBE TOP SCH ×2 (10:10→21:53)
[2021-05-17] MEDS: ONDANSETRON 4 MG/2 ML VIAL IV PRN (10:19)
[2021-05-17 11:18] LABS: UREA NITROGEN, BLOOD 113 mg/dL (7-18)
[2021-05-17] MEDS: SOD FERRIC GLUC COMPLX/SUCROSE 125 MG in IV NORMAL SALINE 100 ML IV SCH (15:15)
[2021-05-17 16:06] LABS: A/G RATIO 0.8 (0.7-1.7); ALBUMIN 2.1 g/dL (2.9-4.4); ALPHA-1-GLOBULIN 0.3 g/dL (0.0-0.4); ALPHA-2-GLOBULIN 0.8 g/dL (0.4-1.0); BETA GLOBULIN 0.7 g/dL (0.7-1.3); GAMMA GLOBULIN 0.8 g/dL (0.4-1.8); GLOBULIN, TOTAL 2.7 g/dL (2.2-3.9); M-SPIKE 0.4 g/dL (Not Observed)
[2021-05-17] MEDS ORDERED: IV 1/2NS 1000 ML 1,000 ML IV PRN (19:15)
[2021-05-18] VITALS: BP 134/44
[2021-05-18 04:00] VITALS: BP 127/63
[2021-05-18 05:06] LABS: HEPATITIS B SURFACE AG Negative (Negative)
[2021-05-18] MEDS: PANTOPRAZOLE SODIUM 40 MG TABLET.DR PO SCH (06:31)
[2021-05-18] MEDS: Z GUARD REMEDY PASTE 57 GM TUBE TOP SCH ×2 (07:46→21:00)
[2021-05-18] MEDS: methylPREDNISolone SOD SUCC 40 MG/ML VIAL IV SCH ×2 (07:46→23:18)
[2021-05-18] MEDS: ALBUTEROL SULFATE 2.5 MG/3 ML NEBU NEB PRN ×3 (08:33→15:40)
[2021-05-18] MEDS: IPRATROPIUM BROMIDE 0.5 MG/2.5 ML NEBU NEB SCH ×4 (08:33→18:56)
[2021-05-18] MEDS ORDERED: AMIODARONE HCL IV 150 MG in IV DEXTROSE 5% 100 ML IV ONE ×2 (08:45→09:00)
[2021-05-18] MEDS ORDERED: AMIODARONE HCL IV 450 MG in IV DEXTROSE 5% 250 ML IV PRN (08:45)
[2021-05-18 09:42] VITALS: BP 116/50
[2021-05-18] MEDS: AMIODARONE HCL IV 450 MG in IV DEXTROSE 5% 250 ML IV PRN ×2 (09:52→20:47)
[2021-05-18 09:59] LABS: HEMATOCRIT 29.7 % (31.2-41.9); MEAN CORPUSCULAR HEMOGLOBIN 23.8 uug (24.7-32.8); MEAN CORPUSCULAR VOLUME 77.1 fL (75.5-95.3); PLATELET COUNT (AUTO) 147 K/uL (179-408)
[2021-05-18 10:11] LABS: CARBON DIOXIDE 33 mmol/L (21-32); CHLORIDE 103 mmol/L (98-107); CREATININE 2.8 mg/dL (0.6-1.3); GLUCOSE 143 mg/dL (74-106); MAGNESIUM 2.7 mg/dL (1.8-2.4); POTASSIUM 5.6 mmol/L (3.5-5.1)
[2021-05-18 10:14] LABS: UREA NITROGEN, BLOOD 100 mg/dL (7-18)
[2021-05-18 12:00] VITALS: BP 118/65
[2021-05-18] MEDS ORDERED: SODIUM POLYSTYRENE SULFONATE 15 G/60 ML LIQUID UDC PO ONE (15:00)
[2021-05-18] MEDS ORDERED: MIRALAX 17 GM POWD.PACK PO ONE (15:15)
[2021-05-18] MEDS: SOD FERRIC GLUC COMPLX/SUCROSE 125 MG in IV NORMAL SALINE 100 ML IV SCH (15:33)
[2021-05-18 16:00] VITALS: BP 123/75
[2021-05-18] MEDS: ONDANSETRON 4 MG/2 ML VIAL IV PRN (18:26)
[2021-05-18] MEDS ORDERED: DILTIAZEM HCL 25 MG IV IV ONE (19:45)
[2021-05-18 20:00] VITALS: BP 149/64
[2021-05-19 00:38] VITALS: BP 135/53
[2021-05-19 04:00] VITALS: BP 131/45
[2021-05-19] MEDS: PANTOPRAZOLE SODIUM 40 MG TABLET.DR PO SCH (06:08)
[2021-05-19 07:51] LABS: MEAN CORPUSCULAR VOLUME 77.5 fL (75.5-95.3); PLATELET COUNT (AUTO) 170 K/uL (179-408)
[2021-05-19] MEDS: methylPREDNISolone SOD SUCC 40 MG/ML VIAL IV SCH ×2 (07:57→20:51)
[2021-05-19] MEDS: Z GUARD REMEDY PASTE 57 GM TUBE TOP SCH ×2 (07:58→21:16)
[2021-05-19] MEDS: ONDANSETRON 4 MG/2 ML VIAL IV PRN (07:59)
[2021-05-19 08:07] LABS: ABG BASE EXCESS 2.6 mmol/L; ABG HCO3 28.1 mmol/L; ABG PCO2 48.1 mmHg (35.0-45.0); ABG PH 7.385 (7.350-7.450); ABG PO2 71.4 mmHg (75.0-100.0); ABG SITE RIGHT RADIAL; ABG TOTAL HEMOGLOBIN 9.7 G/dL (12.0-16.0); COHb 0.2 % (0.5-1.5); MetHb 0.1 % (0.0-1.5); O2Hb 93.6 % (94.0-97.0)
[2021-05-19 08:13] LABS: CARBON DIOXIDE 31 mmol/L (21-32); CHLORIDE 105 mmol/L (98-107); GLUCOSE 147 mg/dL (74-106); MAGNESIUM 2.8 mg/dL (1.8-2.4); PHOSPHOROUS 6.7 mg/dL (2.5-4.9); POTASSIUM 4.8 mmol/L (3.5-5.1)
[2021-05-19] MEDS: ALBUTEROL SULFATE 2.5 MG/3 ML NEBU NEB PRN ×3 (08:13→14:50)
[2021-05-19] MEDS: IPRATROPIUM BROMIDE 0.5 MG/2.5 ML NEBU NEB SCH ×4 (08:13→20:01)
[2021-05-19 08:21] LABS: UREA NITROGEN, BLOOD 107 mg/dL (7-18)
[2021-05-19 11:49] VITALS: BP 136/47
[2021-05-19] MEDS: AMIODARONE HCL 200 MG TABLET PO SCH ×2 (13:08→20:50)
[2021-05-19 16:26] VITALS: BP 127/70
[2021-05-19 21:16] VITALS: BP 148/67
[2021-05-19] MEDS ORDERED: MEROPENEM 500 MG in IV NORMAL SALINE 50 ML IV SCH (21:30)
[2021-05-19] MEDS ORDERED: MEROPENEM 1GM/NS 100ML IVPB **ER PYXIS ONLY IV ONE (21:44)
[2021-05-20 00:22] VITALS: BP 137/57
[2021-05-20 04:16] VITALS: BP 157/67
[2021-05-20] MEDS: PANTOPRAZOLE SODIUM 40 MG TABLET.DR PO SCH (06:00)
[2021-05-20] MEDS: CLONIDINE HCL 0.1 MG TABLET PO PRN (06:00)
[2021-05-20 07:23] LABS: HEMATOCRIT 26.2 % (31.2-41.9); MEAN CORPUSCULAR HEMOGLOBIN 24.2 uug (24.7-32.8); MEAN CORPUSCULAR VOLUME 77.8 fL (75.5-95.3); PLATELET COUNT (AUTO) 134 K/uL (179-408)
[2021-05-20 07:38] LABS: CARBON DIOXIDE 33 mmol/L (21-32); CHLORIDE 108 mmol/L (98-107); CREATININE 2.7 mg/dL (0.6-1.3); GLUCOSE 130 mg/dL (74-106); MAGNESIUM 2.7 mg/dL (1.8-2.4); PHOSPHOROUS 6.8 mg/dL (2.5-4.9); POTASSIUM 4.9 mmol/L (3.5-5.1)
[2021-05-20 07:44] LABS: UREA NITROGEN, BLOOD 99 mg/dL (7-18)
[2021-05-20] MEDS: ALBUTEROL SULFATE 2.5 MG/3 ML NEBU NEB PRN ×4 (07:50→22:20)
[2021-05-20] MEDS: IPRATROPIUM BROMIDE 0.5 MG/2.5 ML NEBU NEB SCH ×4 (07:50→22:19)
[2021-05-20] MEDS ORDERED: MEROPENEM 500 MG in IV NORMAL SALINE 50 ML IV SCH (09:00)
[2021-05-20] MEDS: methylPREDNISolone SOD SUCC 40 MG/ML VIAL IV SCH ×2 (09:32→21:14)
[2021-05-20] MEDS: AMIODARONE HCL 200 MG TABLET PO SCH ×2 (09:33→21:15)
[2021-05-20] MEDS: Z GUARD REMEDY PASTE 57 GM TUBE TOP SCH ×2 (09:33→21:15)
[2021-05-20 11:12] VITALS: BP 127/37
[2021-05-20] MEDS: MEROPENEM 500 MG in IV NORMAL SALINE 50 ML IV SCH ×2 (11:44→23:37)
[2021-05-20 16:23] VITALS: BP 138/46
[2021-05-21] MEDS: AMIODARONE HCL 200 MG TABLET PO SCH ×2 (06:09→20:11)
[2021-05-21] MEDS: PANTOPRAZOLE SODIUM 40 MG TABLET.DR PO SCH (06:09)
[2021-05-21 07:01] LABS: HEMATOCRIT 25.7 % (31.2-41.9); MEAN CORPUSCULAR HEMOGLOBIN 24.4 uug (24.7-32.8); MEAN CORPUSCULAR VOLUME 78.1 fL (75.5-95.3); PLATELET COUNT (AUTO) 125 K/uL (179-408)
[2021-05-21 07:32] LABS: CARBON DIOXIDE 30 mmol/L (21-32); CHLORIDE 110 mmol/L (98-107); CREATININE 2.3 mg/dL (0.6-1.3); GLUCOSE 123 mg/dL (74-106); MAGNESIUM 2.6 mg/dL (1.8-2.4); PHOSPHOROUS 5.7 mg/dL (2.5-4.9); POTASSIUM 4.8 mmol/L (3.5-5.1)
[2021-05-21] MEDS: IPRATROPIUM BROMIDE 0.5 MG/2.5 ML NEBU NEB SCH ×4 (07:51→19:14)
[2021-05-21] MEDS: ALBUTEROL SULFATE 2.5 MG/3 ML NEBU NEB PRN ×4 (07:51→19:14)
[2021-05-21 08:06] LABS: UREA NITROGEN, BLOOD 92 mg/dL (7-18)
[2021-05-21 09:03] VITALS: BP 144/40
[2021-05-21] MEDS: Z GUARD REMEDY PASTE 57 GM TUBE TOP SCH ×2 (09:12→20:12)
[2021-05-21] MEDS: methylPREDNISolone SOD SUCC 40 MG/ML VIAL IV SCH ×2 (09:15→20:11)
[2021-05-21] MEDS: MEROPENEM 500 MG in IV NORMAL SALINE 50 ML IV SCH ×2 (11:21→23:41)
[2021-05-21 11:24] VITALS: BP 144/40
[2021-05-21] MEDS ORDERED: IV DEXTROSE 5% 500 ML IV PRN (11:30)
[2021-05-21] MEDS: IV D5W 1000ML 1,000 ML IV PRN (12:33)
[2021-05-21 14:06] LABS: BETA-2 MICROGLOBULIN, SERUM 4.6 mg/L (0.6-2.4)
[2021-05-21 16:01] VITALS: BP 159/51
[2021-05-21 21:16] VITALS: BP 140/72
[2021-05-21] MEDS ORDERED: AMIODARONE HCL IV 150 MG in IV DEXTROSE 5% 100 ML IV ONE (22:15)
[2021-05-21] MEDS ORDERED: AMIODARONE HCL 150 MG/3 ML VIAL IV ONE (22:37)
[2021-05-21] MEDS: AMIODARONE HCL IV 450 MG in IV DEXTROSE 5% 250 ML IV PRN (23:33)
[2021-05-22 00:35] VITALS: BP 150/70
[2021-05-22 04:22] VITALS: BP 152/77
[2021-05-22] MEDS ORDERED: AMIODARONE HCL 150 MG/3 ML VIAL IV ONE (05:02)
[2021-05-22] MEDS: AMIODARONE HCL IV 450 MG in IV DEXTROSE 5% 250 ML IV PRN ×2 (05:21→16:38)
[2021-05-22] MEDS: PANTOPRAZOLE SODIUM 40 MG TABLET.DR PO SCH (06:24)
[2021-05-22] MEDS: ALBUTEROL SULFATE 2.5 MG/3 ML NEBU NEB PRN ×3 (07:22→19:17)
[2021-05-22] MEDS: IPRATROPIUM BROMIDE 0.5 MG/2.5 ML NEBU NEB SCH ×4 (07:22→19:17)
[2021-05-22 08:48] LABS: HEMATOCRIT 30.8 % (31.2-41.9); MEAN CORPUSCULAR HEMOGLOBIN 24.5 uug (24.7-32.8); PLATELET COUNT (AUTO) 178 K/uL (179-408)
[2021-05-22] MEDS: methylPREDNISolone SOD SUCC 40 MG/ML VIAL IV SCH ×2 (09:14→20:18)
[2021-05-22] MEDS: Z GUARD REMEDY PASTE 57 GM TUBE TOP SCH ×2 (09:17→20:18)
[2021-05-22 09:21] LABS: CARBON DIOXIDE 31 mmol/L (21-32); CHLORIDE 111 mmol/L (98-107); CREATININE 2.3 mg/dL (0.6-1.3); GLUCOSE 159 mg/dL (74-106); MAGNESIUM 2.7 mg/dL (1.8-2.4); PHOSPHOROUS 5.8 mg/dL (2.5-4.9)
[2021-05-22 09:28] LABS: UREA NITROGEN, BLOOD 92 mg/dL (7-18)
[2021-05-22] MEDS: MEROPENEM 500 MG in IV NORMAL SALINE 50 ML IV SCH ×2 (11:31→23:41)
[2021-05-22 12:39] VITALS: BP 115/64
[2021-05-22 17:09] VITALS: BP 157/67
[2021-05-22] MEDS: IV D5W 1000ML 1,000 ML IV PRN (17:58)
[2021-05-22 22:19] VITALS: BP 149/96
[2021-05-23] MEDS: PANTOPRAZOLE SODIUM 40 MG TABLET.DR PO SCH (06:29)
[2021-05-23] MEDS: IPRATROPIUM BROMIDE 0.5 MG/2.5 ML NEBU NEB SCH ×4 (07:27→20:26)
[2021-05-23] MEDS: methylPREDNISolone SOD SUCC 40 MG/ML VIAL IV SCH ×2 (08:50→22:18)
[2021-05-23] MEDS: Z GUARD REMEDY PASTE 57 GM TUBE TOP SCH ×2 (08:51→22:43)
[2021-05-23] MEDS ORDERED: AMIODARONE HCL 200 MG TABLET PO SCH (09:00)
[2021-05-23] MEDS: AMIODARONE HCL IV 450 MG in IV DEXTROSE 5% 250 ML IV PRN ×2 (09:59→20:28)
[2021-05-23] MEDS ORDERED: AMIODARONE HCL IV 150 MG in IV DEXTROSE 5% 100 ML IV ONE (10:00)
[2021-05-23 11:08] VITALS: BP 136/83
[2021-05-23] MEDS: MEROPENEM 500 MG in IV NORMAL SALINE 50 ML IV SCH ×2 (11:54→23:27)
[2021-05-23 15:14] VITALS: BP 138/52
[2021-05-23] MEDS: IV D5W 1000ML 1,000 ML IV PRN (20:00)
[2021-05-23 20:45] VITALS: BP 162/60
[2021-05-23] MEDS ORDERED: MEROPENEM 500 MG VIAL IV ONE (23:04)
[2021-05-24 00:56] VITALS: BP 151/45
[2021-05-24 04:26] VITALS: BP 155/48
[2021-05-24] MEDS: PANTOPRAZOLE SODIUM 40 MG TABLET.DR PO SCH (06:13)
[2021-05-24] MEDS: IPRATROPIUM BROMIDE 0.5 MG/2.5 ML NEBU NEB SCH ×4 (07:35→17:43)
[2021-05-24 07:41] LABS: HEMATOCRIT 27.7 % (31.2-41.9); MEAN CORPUSCULAR HEMOGLOBIN 24.8 uug (24.7-32.8); MEAN CORPUSCULAR VOLUME 79.5 fL (75.5-95.3); PLATELET COUNT (AUTO) 114 K/uL (179-408)
[2021-05-24] MEDS: methylPREDNISolone SOD SUCC 40 MG/ML VIAL IV SCH ×2 (08:00→20:59)
[2021-05-24] MEDS: Z GUARD REMEDY PASTE 57 GM TUBE TOP SCH ×2 (08:01→21:01)
[2021-05-24 08:03] LABS: CARBON DIOXIDE 32 mmol/L (21-32); CHLORIDE 112 mmol/L (98-107); GLUCOSE 150 mg/dL (74-106); MAGNESIUM 2.4 mg/dL (1.8-2.4); PHOSPHOROUS 5.3 mg/dL (2.5-4.9); POTASSIUM 5.1 mmol/L (3.5-5.1)
[2021-05-24 08:05] LABS: UREA NITROGEN, BLOOD 84 mg/dL (7-18)
[2021-05-24 08:58] LABS: ABG BASE EXCESS 2.4 mmol/L; ABG HCO3 28.2 mmol/L; ABG PCO2 50.2 mmHg (35.0-45.0); ABG PH 7.368 (7.350-7.450); ABG SITE RIGHT BRACHIAL; ABG TOTAL HEMOGLOBIN 9.2 G/dL (12.0-16.0); COHb 0.3 % (0.5-1.5); MetHb 0.3 % (0.0-1.5); O2Hb 97.6 % (94.0-97.0)
[2021-05-24] MEDS: AMIODARONE HCL 200 MG TABLET PO SCH ×2 (10:51→21:00)
[2021-05-24 11:30] VITALS: BP 157/64
[2021-05-24] MEDS: MEROPENEM 500 MG in IV NORMAL SALINE 50 ML IV SCH ×2 (12:02→23:46)
[2021-05-24 15:18] VITALS: BP 160/73
[2021-05-24] MEDS: CLONIDINE HCL 0.1 MG TABLET PO PRN (15:27)
[2021-05-24 17:47] VITALS: BP 154/52
[2021-05-24 20:09] VITALS: BP 145/60
[2021-05-25 00:06] VITALS: BP 145/46
[2021-05-25 04:15] VITALS: BP 155/65
[2021-05-25] MEDS: PANTOPRAZOLE SODIUM 40 MG TABLET.DR PO SCH (06:19)
[2021-05-25 07:03] LABS: HEMATOCRIT 28.9 % (31.2-41.9); MEAN CORPUSCULAR HEMOGLOBIN 24.4 uug (24.7-32.8); MEAN CORPUSCULAR VOLUME 78.9 fL (75.5-95.3); PLATELET COUNT (AUTO) 108 K/uL (179-408)
[2021-05-25] MEDS: IPRATROPIUM BROMIDE 0.5 MG/2.5 ML NEBU NEB SCH ×4 (07:05→20:30)
[2021-05-25] MEDS: ALBUTEROL SULFATE 2.5 MG/3 ML NEBU NEB PRN ×3 (07:05→14:40)
[2021-05-25 07:15] LABS: CARBON DIOXIDE 32 mmol/L (21-32); CHLORIDE 111 mmol/L (98-107); CREATININE 1.7 mg/dL (0.6-1.3); GLUCOSE 139 mg/dL (74-106); MAGNESIUM 2.2 mg/dL (1.8-2.4); PHOSPHOROUS 4.2 mg/dL (2.5-4.9); POTASSIUM 4.4 mmol/L (3.5-5.1); UREA NITROGEN, BLOOD 78 mg/dL (7-18)
[2021-05-25 08:00] VITALS: BP 136/72
[2021-05-25] MEDS: methylPREDNISolone SOD SUCC 40 MG/ML VIAL IV SCH ×2 (08:58→20:45)
[2021-05-25] MEDS: Z GUARD REMEDY PASTE 57 GM TUBE TOP SCH ×2 (08:59→20:46)
[2021-05-25] MEDS: AMIODARONE HCL 200 MG TABLET PO SCH ×2 (09:00→20:45)
[2021-05-25] MEDS: ACETAMINOPHEN 325 MG TABLET PO PRN (09:01)
[2021-05-25] MEDS: MEROPENEM 1 G in IV NORMAL SALINE 100 ML IV SCH ×2 (11:13→23:10)
[2021-05-25 12:00] VITALS: BP 196/74
[2021-05-25] MEDS: IV D5W 1000ML 1,000 ML IV PRN (13:09)
[2021-05-25 16:00] VITALS: BP 132/69
[2021-05-25] MEDS: IPRATROPIUM BROMIDE 0.5 MG/2.5 ML NEBU NEB PRN (20:31)
[2021-05-25 20:51] VITALS: BP 137/42
[2021-05-26 00:38] VITALS: BP 163/51
[2021-05-26 04:10] VITALS: BP 140/60
[2021-05-26] MEDS: PANTOPRAZOLE SODIUM 40 MG TABLET.DR PO SCH (07:00)
[2021-05-26] MEDS: IPRATROPIUM BROMIDE 0.5 MG/2.5 ML NEBU NEB SCH ×4 (07:47→19:15)
[2021-05-26] MEDS: ALBUTEROL SULFATE 2.5 MG/3 ML NEBU NEB PRN ×2 (07:47→10:52)
[2021-05-26 07:56] LABS: CARBON DIOXIDE 28 mmol/L (21-32); CHLORIDE 113 mmol/L (98-107); CREATININE 1.7 mg/dL (0.6-1.3); GLUCOSE 133 mg/dL (74-106); MAGNESIUM 2.1 mg/dL (1.8-2.4); PHOSPHOROUS 3.2 mg/dL (2.5-4.9); POTASSIUM 4.4 mmol/L (3.5-5.1); UREA NITROGEN, BLOOD 73 mg/dL (7-18)
[2021-05-26 08:00] VITALS: BP 151/52
[2021-05-26 08:09] LABS: HEMATOCRIT 28.3 % (31.2-41.9); MEAN CORPUSCULAR VOLUME 79.4 fL (75.5-95.3); PLATELET COUNT (AUTO) 84 K/uL (179-408)
[2021-05-26 08:32] LABS: ABG BASE EXCESS 4.3 mmol/L; ABG HCO3 29.8 mmol/L; ABG PCO2 49.4 mmHg (35.0-45.0); ABG PH 7.398 (7.350-7.450); ABG PO2 82.2 mmHg (75.0-100.0); ABG SITE LEFT RADIAL; ABG TOTAL HEMOGLOBIN 9.5 G/dL (12.0-16.0); COHb 0.3 % (0.5-1.5); O2Hb 95.6 % (94.0-97.0); VENT MODE Mask - Simple 6L
[2021-05-26] MEDS: AMIODARONE HCL 200 MG TABLET PO SCH ×2 (08:40→20:29)
[2021-05-26] MEDS: Z GUARD REMEDY PASTE 57 GM TUBE TOP SCH ×2 (08:40→20:30)
[2021-05-26] MEDS: methylPREDNISolone SOD SUCC 40 MG/ML VIAL IV SCH ×2 (08:40→20:29)
[2021-05-26] MEDS: ACETAMINOPHEN 325 MG TABLET PO PRN ×2 (08:40→21:08)
[2021-05-26] MEDS: MEROPENEM 1 G in IV NORMAL SALINE 100 ML IV SCH ×2 (11:04→22:03)
[2021-05-26 13:03] VITALS: BP 148/58
[2021-05-26 16:00] VITALS: BP 158/52
[2021-05-26] MEDS: IV D5W 1000ML 1,000 ML IV PRN (18:46)
[2021-05-26 20:00] VITALS: BP 121/64
[2021-05-27] VITALS: BP 126/70
[2021-05-27 05:40] VITALS: BP 148/62
[2021-05-27] MEDS: PANTOPRAZOLE SODIUM 40 MG TABLET.DR PO SCH (06:10)
[2021-05-27 06:42] LABS: HEMATOCRIT 25.2 % (31.2-41.9); MEAN CORPUSCULAR HEMOGLOBIN 24.6 uug (24.7-32.8); MEAN CORPUSCULAR VOLUME 79.2 fL (75.5-95.3); PLATELET COUNT (AUTO) 65 K/uL (179-408)
[2021-05-27 06:57] LABS: CARBON DIOXIDE 33 mmol/L (21-32); CHLORIDE 114 mmol/L (98-107); CREATININE 1.7 mg/dL (0.6-1.3); GLUCOSE 156 mg/dL (74-106); POTASSIUM 4.6 mmol/L (3.5-5.1); UREA NITROGEN, BLOOD 65 mg/dL (7-18)
[2021-05-27] MEDS: ALBUTEROL SULFATE 2.5 MG/3 ML NEBU NEB PRN ×3 (08:01→14:55)
[2021-05-27] MEDS: IPRATROPIUM BROMIDE 0.5 MG/2.5 ML NEBU NEB SCH ×4 (08:01→19:03)
[2021-05-27] MEDS: methylPREDNISolone SOD SUCC 40 MG/ML VIAL IV SCH ×2 (09:27→20:21)
[2021-05-27] MEDS: Z GUARD REMEDY PASTE 57 GM TUBE TOP SCH ×2 (09:28→20:21)
[2021-05-27] MEDS: AMIODARONE HCL 200 MG TABLET PO SCH ×2 (09:29→20:20)
[2021-05-27] MEDS: IV D5W 1000ML 1,000 ML IV PRN (11:12)
[2021-05-27] MEDS: MEROPENEM 1 G in IV NORMAL SALINE 100 ML IV SCH ×2 (11:49→23:35)
[2021-05-27 11:56] VITALS: BP 110/45
[2021-05-27 16:00] VITALS: BP 101/36
[2021-05-27] MEDS: ONDANSETRON 4 MG/2 ML VIAL IV PRN (20:27)
[2021-05-28] MEDS: IV D5W 1000ML 1,000 ML IV PRN (05:58)
[2021-05-28] MEDS: PANTOPRAZOLE SODIUM 40 MG TABLET.DR PO SCH (06:22)
[2021-05-28] MEDS: ALBUTEROL SULFATE 2.5 MG/3 ML NEBU NEB PRN ×3 (07:21→14:51)
[2021-05-28] MEDS: IPRATROPIUM BROMIDE 0.5 MG/2.5 ML NEBU NEB SCH ×4 (07:21→20:20)
[2021-05-28 07:58] LABS: HEMATOCRIT 25.8 % (31.2-41.9); MEAN CORPUSCULAR VOLUME 78.8 fL (75.5-95.3); PLATELET COUNT (AUTO) 64 K/uL (179-408)
[2021-05-28 08:15] LABS: CARBON DIOXIDE 32 mmol/L (21-32); CHLORIDE 110 mmol/L (98-107); CREATININE 1.4 mg/dL (0.6-1.3); GLUCOSE 129 mg/dL (74-106); MAGNESIUM 1.7 mg/dL (1.8-2.4); POTASSIUM 4.7 mmol/L (3.5-5.1); UREA NITROGEN, BLOOD 59 mg/dL (7-18)
[2021-05-28] MEDS: methylPREDNISolone SOD SUCC 40 MG/ML VIAL IV SCH (09:05)
[2021-05-28] MEDS: AMIODARONE HCL 200 MG TABLET PO SCH ×2 (09:06→20:33)
[2021-05-28] MEDS: Z GUARD REMEDY PASTE 57 GM TUBE TOP SCH ×2 (09:06→20:34)
[2021-05-28 11:45] VITALS: BP 150/42
[2021-05-28] MEDS: MEROPENEM 1 G in IV NORMAL SALINE 100 ML IV SCH ×2 (12:04→22:14)
[2021-05-28] MEDS: MAGNESIUM SULFATE/D5W 100 ML IV SCH ×2 (12:48→14:32)
[2021-05-28 16:46] VITALS: BP 139/46
[2021-05-28 20:41] VITALS: BP 130/52
[2021-05-29] MEDS: IV D5W 1000ML 1,000 ML IV PRN ×2 (05:39→21:00)
[2021-05-29] MEDS: PANTOPRAZOLE SODIUM 40 MG TABLET.DR PO SCH (06:07)
[2021-05-29 07:28] LABS: HEMATOCRIT 25.3 % (31.2-41.9); MEAN CORPUSCULAR VOLUME 79.5 fL (75.5-95.3); PLATELET COUNT (AUTO) 66 K/uL (179-408)
[2021-05-29 07:50] LABS: CARBON DIOXIDE 31 mmol/L (21-32); CHLORIDE 108 mmol/L (98-107); CREATININE 1.6 mg/dL (0.6-1.3); GLUCOSE 145 mg/dL (74-106); MAGNESIUM 2.1 mg/dL (1.8-2.4); PHOSPHOROUS 2.6 mg/dL (2.5-4.9); POTASSIUM 4.9 mmol/L (3.5-5.1); UREA NITROGEN, BLOOD 55 mg/dL (7-18)
[2021-05-29] MEDS: IPRATROPIUM BROMIDE 0.5 MG/2.5 ML NEBU NEB SCH ×4 (08:16→20:44)
[2021-05-29 08:40] LABS: ABG HCO3 28.9 mmol/L; ABG PCO2 44.9 mmHg (35.0-45.0); ABG PH 7.426 (7.350-7.450); ABG PO2 51.3 mmHg (75.0-100.0); ABG SITE RIGHT RADIAL; COHb 1.3 % (0.5-1.5); MetHb 0.1 % (0.0-1.5); O2Hb 87.2 % (94.0-97.0); VENT MODE ROOM AIR
[2021-05-29] MEDS: methylPREDNISolone SOD SUCC 40 MG/ML VIAL IV SCH (09:16)
[2021-05-29] MEDS: Z GUARD REMEDY PASTE 57 GM TUBE TOP SCH ×2 (09:17→21:28)
[2021-05-29] MEDS: AMIODARONE HCL 200 MG TABLET PO SCH ×2 (09:20→21:28)
[2021-05-29] MEDS: MEROPENEM 1 G in IV NORMAL SALINE 100 ML IV SCH ×2 (10:34→22:16)
[2021-05-29 11:37] VITALS: BP 149/48
[2021-05-30 00:07] VITALS: BP 124/70
[2021-05-30 04:00] VITALS: BP 127/43
[2021-05-30] MEDS: PANTOPRAZOLE SODIUM 40 MG TABLET.DR PO SCH (06:39)
[2021-05-30 06:40] LABS: HEMATOCRIT 26.7 % (31.2-41.9); MEAN CORPUSCULAR VOLUME 78.6 fL (75.5-95.3); PLATELET COUNT (AUTO) 77 K/uL (179-408)
[2021-05-30 07:36] LABS: CARBON DIOXIDE 31 mmol/L (21-32); CHLORIDE 103 mmol/L (98-107); CREATININE 1.4 mg/dL (0.6-1.3); FERRITIN 655 ng/mL (8-252); GLUCOSE 114 mg/dL (74-106); MAGNESIUM 1.9 mg/dL (1.8-2.4); PHOSPHOROUS 2.5 mg/dL (2.5-4.9); POTASSIUM 4.7 mmol/L (3.5-5.1); UREA NITROGEN, BLOOD 52 mg/dL (7-18)
[2021-05-30] MEDS: IPRATROPIUM BROMIDE 0.5 MG/2.5 ML NEBU NEB SCH ×4 (08:07→20:04)
[2021-05-30] MEDS: methylPREDNISolone SOD SUCC 40 MG/ML VIAL IV SCH (08:25)
[2021-05-30 08:26] LABS: IRON, SERUM 27 ug/dL (50-175)
[2021-05-30] MEDS: Z GUARD REMEDY PASTE 57 GM TUBE TOP SCH ×2 (08:26→20:25)
[2021-05-30] MEDS: AMIODARONE HCL 200 MG TABLET PO SCH ×2 (08:37→20:25)
[2021-05-30] MEDS: MEROPENEM 1 G in IV NORMAL SALINE 100 ML IV SCH (11:25)
[2021-05-30] MEDS: IV D5W 1000ML 1,000 ML IV PRN (11:28)
[2021-05-30 12:00] VITALS: BP 138/40
[2021-05-30 16:00] VITALS: BP 148/51
[2021-05-30 20:00] VITALS: BP 160/61
[2021-05-31 00:03] VITALS: BP_SYST 140; BP_SYST 149; BP_DIAS 54
[2021-05-31 04:15] VITALS: BP 149/48
[2021-05-31] MEDS: IV D5W 1000ML 1,000 ML IV PRN (04:15)
[2021-05-31 06:57] LABS: MEAN CORPUSCULAR HEMOGLOBIN 24.9 uug (24.7-32.8); MEAN CORPUSCULAR VOLUME 78.5 fL (75.5-95.3); PLATELET COUNT (AUTO) 97 K/uL (179-408)
[2021-05-31] MEDS: IPRATROPIUM BROMIDE 0.5 MG/2.5 ML NEBU NEB SCH ×4 (07:11→20:14)
[2021-05-31] MEDS: ALBUTEROL SULFATE 2.5 MG/3 ML NEBU NEB PRN ×3 (07:11→15:04)
[2021-05-31 07:19] LABS: NEUTROPHILS % (MANUAL) 0 % (42-75)
[2021-05-31] MEDS: PANTOPRAZOLE SODIUM 40 MG TABLET.DR PO SCH (07:28)
[2021-05-31 07:36] LABS: CREATININE 1.3 mg/dL (0.6-1.3); MAGNESIUM 1.8 mg/dL (1.8-2.4); POTASSIUM 4.9 mmol/L (3.5-5.1)
[2021-05-31] MEDS: methylPREDNISolone SOD SUCC 40 MG/ML VIAL IV SCH (08:52)
[2021-05-31] MEDS: Z GUARD REMEDY PASTE 57 GM TUBE TOP SCH ×2 (08:56→21:07)
[2021-05-31] MEDS: AMIODARONE HCL 200 MG TABLET PO SCH ×2 (08:56→21:07)
[2021-05-31 12:00] VITALS: BP 116/57
[2021-05-31 16:00] VITALS: BP 94/59
[2021-05-31 20:09] VITALS: BP 147/53
[2021-06-01 04:49] VITALS: BP 138/51
[2021-06-01] MEDS: PANTOPRAZOLE SODIUM 40 MG TABLET.DR PO SCH (07:18)
[2021-06-01 07:39] LABS: HEMATOCRIT 29.1 % (31.2-41.9); MEAN CORPUSCULAR HEMOGLOBIN 24.9 uug (24.7-32.8); MEAN CORPUSCULAR VOLUME 77.7 fL (75.5-95.3); PLATELET COUNT (AUTO) 121 K/uL (179-408)
[2021-06-01 08:06] LABS: CREATININE 1.3 mg/dL (0.6-1.3); MAGNESIUM 1.9 mg/dL (1.8-2.4); PHOSPHOROUS 2.9 mg/dL (2.5-4.9); POTASSIUM 4.9 mmol/L (3.5-5.1)
[2021-06-01] MEDS: IPRATROPIUM BROMIDE 0.5 MG/2.5 ML NEBU NEB SCH ×4 (08:44→19:09)
[2021-06-01] MEDS: methylPREDNISolone SOD SUCC 40 MG/ML VIAL IV SCH (08:59)
[2021-06-01] MEDS: AMIODARONE HCL 200 MG TABLET PO SCH ×2 (08:59→20:39)
[2021-06-01] MEDS: Z GUARD REMEDY PASTE 57 GM TUBE TOP SCH ×2 (09:05→20:39)
[2021-06-01 12:00] VITALS: BP 140/53
[2021-06-01 16:00] VITALS: BP 146/54
[2021-06-01 20:00] VITALS: BP 143/35
[2021-06-02 04:09] VITALS: BP 146/57
[2021-06-02] MEDS: IPRATROPIUM BROMIDE 0.5 MG/2.5 ML NEBU NEB SCH ×3 (08:10→14:54)
[2021-06-02] MEDS: ALBUTEROL SULFATE 2.5 MG/3 ML NEBU NEB PRN (08:10)
[2021-06-02] MEDS ORDERED: predniSONE 10 MG TABLET PO SCH (09:00)
[2021-06-02] MEDS: PANTOPRAZOLE SODIUM 40 MG TABLET.DR PO SCH (11:34)
[2021-06-02] MEDS: AMIODARONE HCL 200 MG TABLET PO SCH (11:39)
[2021-06-02] MEDS: Z GUARD REMEDY PASTE 57 GM TUBE TOP SCH (11:40)
[2021-06-02] MEDS ORDERED: AMIO200T6 PO (13:54)
[2021-06-02] MEDS ORDERED: PRED10TA PO (13:54)
[2021-06-02] MEDS ORDERED: PRED-170 PO (13:54)
[2021-06-02] MEDS ORDERED: PANT40TA49 PO (13:54)
[2021-06-02] MEDS ORDERED: IPRA0.2S6 NEB (13:54)
== END 2021-06-02 19:30 | DRG 720 ==
LOC: ER 14:49 → CCU 18:47 → TELE3 05-04 19:03 → CCU 05-06 20:45 → TELE3 05-17 04:00 → TELE-TD3 05-18 08:53 → MEDSURG3 05-27 12:00 → TELE3 05-27 12:35 → MEDSURG3 05-31 10:25
PROVIDERS: ADMIT Internal Medicine; ATTEND Nurse Practitioner Family
PROC: 05H933Z Insertion of Infusion Device into Right Brachial Vein, Percutaneous Approach (ICD-10-PCS; 2021-05-04)
PROC: 30233N1 Transfusion of Nonautologous Red Blood Cells into Peripheral Vein, Percutaneous Approach (ICD-10-PCS; principal; 2021-05-05)
PROC: 05HB33Z Insertion of Infusion Device into Right Basilic Vein, Percutaneous Approach (ICD-10-PCS; 2021-05-26)
PROC: 05HD33Z Insertion of Infusion Device into Right Cephalic Vein, Percutaneous Approach (ICD-10-PCS; 2021-05-28)
DX: A41.9 Sepsis, unspecified organism (principal); N17.0 Acute kidney failure with tubular necrosis; J96.21 Acute and chronic respiratory failure with hypoxia; J69.0 Pneumonitis due to inhalation of food and vomit; R65.21 Severe sepsis with septic shock; I50.33 Acute on chronic diastolic (congestive) heart failure; G92.8 Other toxic encephalopathy; D61.818 Other pancytopenia; K85.90 Acute pancreatitis without necrosis or infection, unspecified; J96.22 Acute and chronic respiratory failure with hypercapnia; D68.59 Other primary thrombophilia; I47.2 Ventricular tachycardia; L97.919 Non-pressure chronic ulcer of unspecified part of right lower leg with unspecified severity; L97.929 Non-pressure chronic ulcer of unspecified part of left lower leg with unspecified severity; Z68.43 Body mass index [BMI] 50.0-59.9, adult; E43 Unspecified severe protein-calorie malnutrition; D64.9 Anemia, unspecified; B37.49 Other urogenital candidiasis; R00.1 Bradycardia, unspecified; I11.0 Hypertensive heart disease with heart failure; E66.01 Morbid (severe) obesity due to excess calories; D50.9 Iron deficiency anemia, unspecified; E87.0 Hyperosmolality and hypernatremia; E87.5 Hyperkalemia; F25.9 Schizoaffective disorder, unspecified; I13.0 Hypertensive heart and chronic kidney disease with heart failure and stage 1 through stage 4 chronic kidney disease, or unspecified chronic kidney disease; N18.9 Chronic kidney disease, unspecified; Z20.822 Contact with and (suspected) exposure to COVID-19; L03.116 Cellulitis of left lower limb; L03.115 Cellulitis of right lower limb; B96.89 Other specified bacterial agents as the cause of diseases classified elsewhere; I45.10 Unspecified right bundle-branch block; I48.0 Paroxysmal atrial fibrillation; I67.2 Cerebral atherosclerosis; T17.890A Other foreign object in other parts of respiratory tract causing asphyxiation, initial encounter; X58.XXXA Exposure to other specified factors, initial encounter; Y93.9 Activity, unspecified; Y92.9 Unspecified place or not applicable; I83.009 Varicose veins of unspecified lower extremity with ulcer of unspecified site; K31.89 Other diseases of stomach and duodenum; K56.41 Fecal impaction; K80.20 Calculus of gallbladder without cholecystitis without obstruction; N28.1 Cyst of kidney, acquired; Z86.73 Personal history of transient ischemic attack (TIA), and cerebral infarction without residual deficits; D47.2 Monoclonal gammopathy; R19.5 Other fecal abnormalities
CPT/HCPCS: 36415; 36600; 70030-TC; 70450; 71045; 71250; 74018; 76604; 76700; 77074; 82378; 82747; 82784; 83550; 83605; 83690; 83735; 84100; 84155; 84165; 84443; 84520; 85014; 85025; 85610; 85730; 86038; 86334; 86430; 86706; 86803; 86850; 86900; 86901; 86920; 87040; 87070; 87086; 87340; 87400; 93005; 93307; 94640; 94664; 94760; A4217; A4663; A6209; C9113; G0378; J0282; J0360; J1450; J1815; J1940; J2185; J2270; J2405; J2543; J2916; J2920; J2930; J3370; J3475; J3490; J3590; J7030; J7040; J7042; J7050; J7060; J7070; J7512; P9016; P9047; U0003